=== PATIENT | female | born 1995 | race African-American/Black ===

== ENCOUNTER 2017-01-07 12:36 | Emergency (ER) | payer OTHER, SELFPAY ==
[2017-01-07] MEDS ORDERED: Acetaminophen 500 MG TAB ONE (13:41)
[2017-01-07] MEDS ORDERED: Ibuprofen 200 MG TAB ONE (14:37)
== END 2017-01-07 15:22 | disposition home or self-care (01) ==
LOC: ERS 12:36
DX: J11.1 Influenza due to unidentified influenza virus with other respiratory manifestations (principal); I10 Essential (primary) hypertension
CPT/HCPCS: 87081; 87430; 99283

== ENCOUNTER 2018-04-04 15:41 | Emergency (ER) | payer SELFPAY | END 2018-04-04 17:02 | disposition home or self-care (01) | LOC: ERS 15:41 | DX: J02.9 Acute pharyngitis, unspecified (principal); I10 Essential (primary) hypertension; Z79.899 Other long term (current) drug therapy | CPT/HCPCS: 87081; 87430; 99283 ==

== ENCOUNTER 2019-01-30 05:36 | Emergency (ER) | payer BC, SELFPAY ==
[2019-01-30 06:04] LABS: Hemoglobin 13.4 g/dL (12.0-16.0); Mean Corpuscular HGB CONC 32.3 g/dL (32.0-36.0); Mean Corpuscular Hemoglobin 29.9 pg (27.0-31.0); Mean Corpuscular Volume 92.4 fL (78.0-98.0); Platelet Count 344 thou/uL (130-400); RBC Distribution Width 11.9 % (11.5-14.5); White Blood Cell (WBC) Count 16.8 thou/uL (4.8-10.8)
[2019-01-30 06:27] LABS: Band 2 % (5-11); Lymphocytes 3 % (21-51); MDiff Complete? YES; Monocytes 1 % (0-10); Neutrophil 94 % (42-75); Platelet Morphology Comment Appears Adequate; RBC Morphology Normal
[2019-01-30 06:38] LABS: ALT (SGPT) 20 U/L (8-55); AST (SGOT) 17 U/L (5-34); Albumin 5.2 g/dL (3.5-5.0); Alkaline Phosphatase 101 U/L (40-110); Anion Gap 21 mmol/L (10-20); BUN (Urea Nitrogen) 10 mg/dL (7.0-18.7); Bilirubin, Total 0.9 mg/dL (0.2-1.2); Calc. Creatinine Clearance 0 mL/min (70-130); Carbon Dioxide 19 mmol/L (22-29); Chloride 101 mmol/L (98-107); Estimated GFR-MDRD Greater than 90; Globulin 3.1 g/dL (2.4-3.5); Glucose 137 mg/dL (70-105); Lipase 14 U/L (8-78); Potassium 3.8 mmol/L (3.5-5.1); Protein, Total 8.3 g/dL (6.0-8.3); Sodium 137 mmol/L (136-145)
[2019-01-30 06:54] LABS: BHCG - Serum Negative (NEGATIVE); Pregs Control Background? CLEAR/WHITE (CLR/WHITE); Pregs Control Bar Appear? YES (CONTROL BAR)
[2019-01-30 07:37] LABS: Bacteria/HPF 2+ HPF (None Seen); Bilirubin Negative (Negative); Blood, Urine Negative (Negative); Clarity Clear (Clear); Glucose, Urine (Dipstick) Normal (Negative); Leukocyte Negative Leu/uL (Negative); Nitrite 2+ (Negative); Protein, Urine (Dipstick) 10 mg/dL (Neg-Trace); RBC/HPF 0-3 HPF (0-3); Squamous Epithelial 0-3 HPF (0-3); Urobilinogen Normal mg/dL (Less than 2); WBC/HPF 0-3 HPF (0-3)
--- NOTE | 2019-01-30 07:49 | CT ---
CT ABDOMEN AND PELVIS WITH IV CONTRAST 01/30/2019 CLINICAL INFORMATION: Abdominal pain with nausea and vomiting which started site. Most severe in the lower abdomen. COMPARISON: None. Technique: Multiple contiguous axial CT images are obtained through the abdomen and pelvis with IV contrast. Cor onal reformatted images are provided. FINDINGS: Lower Chest: Lung bases are clear. Vessels: Incidental note is made of a retroaortic left renal vein. The abdominal aorta is normal in c aliber without evidence of an aortic dissection. Abdomen: Portal vein:Patent Gallbladder: Within normal limits for CT imaging. Liver: within normal limits. Spleen: within normal limits. Pancreas: within normal limits. Adrenals: within normal limits. Kidneys: within normal limits. Bowel: There is a metallic density seen in the region of the cecal apex which may be related to inges gil material. Loops of small bowel are normal in caliber. Appendix: The appendix is mildly dilated measuring 8 mm, but no periappendiceal inflammatory changes or cecal apical thickening is seen. This may be within normal limits for the patient. Peritoneum: No ascites or free air; no fluid collection. Mesentery and Retroperitoneum: No enlarged mesenteric or retroperitoneal lymph nodes. Abdominal Wall: within normal limits. Pelvis: Reproductive Organs: A T-shaped intrauterine contraceptive device is noted in place. Pelvis within normal limits. Bladder: Partially distended and normal in appearance. Bones: No suspicious lytic or sclerotic osseous lesions are identified. IMPRESSION: 1. No acute findings are seen in the abdomen or pelvis. 2. The appendix is mildly dilated measuring 8 mm, but there is no periappendiceal inflammatory change s or cecal apical thickening to suggest evidence of appendicitis. This may be within normal limits for the patient. 3. Metallic density seen in the cecal apex which may be related to tiny metallic ingested foreign bod y.
[2019-01-30 07:54] LABS: Base Excess-Venous -4.7 mmol/L (-2.0 to 3.0); Bicarbonate (HCO3v) 18.2 mmol/L (22.0-28.0); Calcium, Ionized 1.06 mmol/L (See Comments:); Chloride 102 mmol/L (98-107); Hemoglobin - Calc 12.5 g/dL (12.0-16.0); Potassium 3.9 mmol/L (3.5-5.1); Sodium 135 mmol/L (138-145); vO2 Saturation-calc 93.2 % (60.0-85.0)
[2019-01-30] MEDS ORDERED: cefTRIAXone\\ROCEPHIN 1 GM VIAL ONE (08:38)
[2019-01-30] MEDS ORDERED: Morphine 4 MG/ML VIAL ONE (08:44)
[2019-01-30] MEDS ORDERED: Promethazine HCl 25 MG/ML VIAL ONE (09:09)
[2019-01-30] MEDS ORDERED: ISOVUE-370 76%-LOCM 1 ML ONE (12:00)
== END 2019-01-30 10:21 | disposition home or self-care (01) ==
LOC: ERS 05:36
DX: N39.0 Urinary tract infection, site not specified (principal); R11.2 Nausea with vomiting, unspecified; I10 Essential (primary) hypertension
CPT/HCPCS: 36415; 74177; 80053; 81003; 81015; 82330; 82803; 83690; 84703; 85025; 87077; 87086; 87186; 96361; 96365; 96367; 96375; J0696; J2270; J2550; Q9966

== ENCOUNTER 2019-01-31 07:40 | Inpatient (IN) | payer BC, SELFPAY ==
[2019-01-31 08:03] LABS: #Eosinphils 0.1 thou/uL (0.0-0.7); #Monocytes 1.4 thou/uL (0.11-0.59); #Neutrophils 6.4 thou/uL (1.40-6.50); %Basophils 0.1 % (0.0-1.0); %Eosinophils 0.6 % (0.0-10.0); %Lymphocytes 27.4 % (21.0-51.0); %Neutrophils 58.9 % (42.0-75.0); Hemoglobin 13.6 g/dL (12.0-16.0); Mean Corpuscular HGB CONC 32.8 g/dL (32.0-36.0); Mean Corpuscular Hemoglobin 30.6 pg (27.0-31.0); Mean Corpuscular Volume 93.3 fL (78.0-98.0); Mean Platelet Volume 6.9 fL (7.4-10.4); Platelet Count 342 thou/uL (130-400); Red Blood Cell (RBC) Count 4.46 mill/uL (4.20-5.40); White Blood Cell (WBC) Count 10.9 thou/uL (4.8-10.8)
[2019-01-31] MEDS ORDERED: Ondansetron PF 4 MG/2 ML Vial ONE (08:23)
[2019-01-31 08:35] LABS: ALT (SGPT) 18 U/L (8-55); AST (SGOT) 20 U/L (5-34); Albumin 4.6 g/dL (3.5-5.0); Alkaline Phosphatase 89 U/L (40-110); Anion Gap 16 mmol/L (10-20); BUN (Urea Nitrogen) 9 mg/dL (7.0-18.7); Bilirubin, Total 0.9 mg/dL (0.2-1.2); Calc. Creatinine Clearance 0 mL/min (70-130); Calcium 9.5 mg/dL (7.8-10.44); Carbon Dioxide 24 mmol/L (22-29); Chloride 101 mmol/L (98-107); Estimated GFR-MDRD 85; Globulin 2.9 g/dL (2.4-3.5); Glucose 105 mg/dL (70-105); Lipase 19 U/L (8-78); Potassium 3.1 mmol/L (3.5-5.1); Protein, Total 7.5 g/dL (6.0-8.3); Sodium 138 mmol/L (136-145)
[2019-01-31] MEDS ORDERED: Morphine 4 MG/ML VIAL ONE (08:46)
--- NOTE | 2019-01-31 09:08 | CT ---
CT HEAD NONCONTRAST In the emergency department, this patient was inadvertently transported to the emergency room CT depa rtment for a head CT scan by the emergency room transportation service. The patient will not be billed for this exam. This interpretation will be performed for documentation purposes, as the images are now a component o f the patient's permanent medical record. CT images of the brain reveal no evidence of acute intracranial abnormality. There are no significant abnormalities demonstrated on the basis of noncontrast head CT.
[2019-01-31] MEDS ORDERED: Metoclopramide HCl 10 MG/2 ML VIAL ONE (09:41)
[2019-01-31] MEDS ORDERED: Potassium Chloride 20 MEQ TAB ONE (10:07)
--- NOTE | 2019-01-31 10:11 | RAD ---
XR Abdomen 2 View/1 View Cxr History: Abdominal pain Comparison: None. Findings: Lungs are clear. No pneumothorax or effusion. Cardiac silhouette and mediastinal contours a re within normal limits. No dilated air-filled loops of large or small bowel. Intrauterine device projects over the pelvis. No abnormal calcifications projecting of the renal shadows. No free air under the hemidiaphragms. Impression: No acute intrathoracic or intra-abdominal abnormality.
[2019-01-31] MEDS ORDERED: Potassium Chloride 30 MEQ in Sodium Chloride 0.9% 250 ML 250 ML IV SCH (11:00)
[2019-01-31 11:32] LABS: Bacteria/HPF None Seen HPF (None Seen); Bilirubin Negative (Negative); Blood, Urine 3+ (Negative); Clarity Clear (Clear); Glucose, Urine (Dipstick) Normal (Negative); Leukocyte Negative Leu/uL (Negative); Nitrite Negative (Negative); Protein, Urine (Dipstick) Negative (Neg-Trace); RBC/HPF 0-3 HPF (0-3); Squamous Epithelial 0-3 HPF (0-3); Urobilinogen Normal mg/dL (Less than 2); WBC/HPF 0-3 HPF (0-3)
[2019-01-31 11:35] LABS: Pregnancy Test - Urine (BHCG) Negative (Negative); Pregu Control Background? CLEAR/WHITE (CLR/WHITE); Pregu Control Bar Appear? YES (CONTROL BAR); Specific Gravity 1.016 (1.002-1.036)
[2019-01-31 11:39] LABS: Lactic Acid 1.7 mmol/L (0.5-2.2)
[2019-01-31 11:44] LABS: Phosphorus 1.2 mg/dL (2.3-4.7)
[2019-01-31] MEDS ORDERED: metroNIDAZOLE 500 MG in Premix Bag 1 BAG IVPB SCH (12:00)
[2019-01-31] MEDS ORDERED: Calcium Carbonate 500 MG ChewTAB PO PRN (12:32)
[2019-01-31] MEDS ORDERED: Ondansetron PF 4 MG/2 ML Vial IVP PRN (12:32)
[2019-01-31 12:58] VITALS: BMI 30.2
[2019-01-31] MEDS: Morphine 2 MG/ML SYRINGE SLOW IVP PRN ×3 (13:51→21:07)
[2019-01-31] MEDS: Piperacillin/Tazobactam 3.375 GM in Sodium Chloride 0.9% 100 ML IVPB SCH ×3 (13:51→23:30)
--- NOTE | 2019-01-31 14:30 | HP ---
PRIMARY CARE PHYSICIAN: [facility]. CHIEF COMPLAINT: Nausea, vomiting, diarrhea along with abdominal discomfort of 3 days duration. HISTORY OF PRESENT ILLNESS: The patient is a 23-year-old female who presented to the emergency room with above complaints. Over the last three days, the patient developed intractable nausea, vomiting, and diarrhea. She was unable to keep any food down. The vomiting was watery and contained food which she had eaten. The diarrhea was watery, initially nonbloody. Since yesterday, she noticed some bloody streaks. She also had fever and chills along with generalized weakness and fatigue. She also had abdominal discomfort mainly in the lower quadrant, cramping, 10/10, aggravated by movement. She also recently traveled to [place] approximately a month ago. She denies any sick contacts. She ate some tacos 3-4 days before the symptom onset. No similar symptoms in the past. The patient was evaluated in the emergency room yesterday. The CT scan of the abdomen showed some swelling of the appendix. She was discharged home with a diagnosis of possible viral gastroenteritis. Post discharge from the ED, her symptoms continued to worsen for which she presented to the emergency room. The patient denies any hematemesis. The vomitus was bilious. PAST MEDICAL HISTORY: History of hypertension. PAST SURGICAL HISTORY: Bilateral knee arthroscopic surgery. ALLERGIES: NO KNOWN DRUG ALLERGIES. CURRENT HOME MEDICATION: Reviewed with the patient and none. SOCIAL HISTORY: The patient currently lives at home. Drinks alcohol socially. She abuses cannabis every other week. Denies any tobacco abuse. FAMILY HISTORY: Positive for diabetes and hypertension. REVIEW OF SYSTEMS: All other review of systems was reviewed and were found negative. PHYSICAL EXAMINATION: VITAL SIGNS: Temperature 98.8, respirations of 18, pulse rate of 73, blood pressure of 168/102, O2 saturation 99% on room air. GENERAL: 23-year-old female, in mild distress due to abdominal discomfort. HEENT: Head, atraumatic and normocephalic. Sclerae anicteric. Dry mucous membranes. No oral lesion. NECK: Supple. No JVD appreciated. No carotid bruit. LUNGS: Clear to auscultation bilaterally. No wheezing, rales, rhonchi. HEART: S1, S2 present. Regular rate and rhythm. No rubs or gallops. ABDOMEN: Soft. There is diffuse tenderness around the periumbilical region. No rebound or guarding. No costovertebral angle tenderness. EXTREMITIES: No edema, calf tenderness. NEUROLOGIC: Grossly nonfocal. Moves all 4 extremities. PSYCHIATRY: Alert, awake, oriented x3. SKIN: Warm and dry. LYMPH NODES: No palpable lymph nodes in the neck. PERIPHERAL VASCULAR: Radial pulses palpable bilaterally. MUSCULOSKELETAL: No joint swelling or tenderness. LABORATORY FINDINGS: WBC 16.8 yesterday and 10.9 today. VBGs yesterday showed pH of 7.43 with bicarbonate 18.2. Sodium yesterday was 135, today is 138 with potassium 3.1. Lactic acid 2.8, BUN 9, and creatinine 0.98, magnesium 1.9, phosphorus 1.2. Urinalysis showed 2+ bacteria. Urine test was negative. Urine culture from yesterday showed gram-negative amie. CT scan of the abdomen and pelvis done yesterday as discussed above. CT scan of the brain noncontrast was negative for acute findings. Acute abdominal series by my review was negative for free air. Telemetry monitoring by my review showed sinus rhythm. IMPRESSION: 1. Nausea, vomiting, diarrhea with abdominal discomfort. Her symptoms are consistent with severe sepsis secondary to gastroenteritis. 2. Dehydration with hypokalemia, hypophosphatemia, and lactic acidosis. 3. Suspected urinary tract infection. Urine cultures from yesterday showed gram-negative rods. 4. Recent foreign body ingestion. CT scan showed a foreign body in the cecum. 5. Cannabis abuse. 6. Hyponatremia. PLAN: The patient will be monitored on the medical floor. We will replace electrolytes. Start IV fluids. Start her on IV Zosyn and Flagyl. We will get stool workup including ova and parasite. Recheck labs in a.m. The patient denies any recent antibiotic use. Gastroenterology and General Surgery consultation. Pain control. Plan of care was discussed with the patient in detail. She stated understanding. Job ID: [id number]
[2019-01-31] MEDS: metroNIDAZOLE 500 MG in Premix Bag 1 BAG IVPB SCH ×2 (14:53→20:06)
[2019-01-31] MEDS: POTASSIUM PHOSPHATE IV SCH ×2 (16:53→21:11)
[2019-01-31] MEDS: DEXTROSE 5% IV SCH ×2 (16:53→21:11)
[2019-01-31] MEDS: WATER IV SCH ×2 (16:53→21:11)
[2019-01-31] MEDS: Famotidine/PF 20 mg/2ml Vial SLOW IVP SCH (20:07)
[2019-02-01] MEDS: Morphine 2 MG/ML SYRINGE SLOW IVP PRN ×3 (00:47→08:36)
[2019-02-01] MEDS: metroNIDAZOLE 500 MG in Premix Bag 1 BAG IVPB SCH ×3 (05:06→20:08)
[2019-02-01] MEDS: WATER IV SCH ×3 (05:12→15:27)
[2019-02-01] MEDS: POTASSIUM PHOSPHATE IV SCH ×3 (05:12→15:27)
[2019-02-01] MEDS: DEXTROSE 5% IV SCH ×3 (05:12→15:27)
[2019-02-01] MEDS: Piperacillin/Tazobactam 3.375 GM in Sodium Chloride 0.9% 100 ML IVPB SCH ×4 (05:13→23:36)
[2019-02-01 05:26] LABS: #Eosinphils 0.1 thou/uL (0.0-0.7); #Lymphocytes 2.8 thou/uL (1.20-3.40); #Monocytes 1.1 thou/uL (0.11-0.59); #Neutrophils 4.9 thou/uL (1.40-6.50); %Basophils 0.3 % (0.0-1.0); %Eosinophils 1.3 % (0.0-10.0); %Lymphocytes 31.1 % (21.0-51.0); %Monocytes 12.5 % (0.0-10.0); %Neutrophils 54.8 % (42.0-75.0); Hemoglobin 11.5 g/dL (12.0-16.0); Mean Corpuscular HGB CONC 32.5 g/dL (32.0-36.0); Mean Corpuscular Hemoglobin 30.3 pg (27.0-31.0); Mean Corpuscular Volume 93.3 fL (78.0-98.0); Mean Platelet Volume 6.9 fL (7.4-10.4); Platelet Count 287 thou/uL (130-400); RBC Distribution Width 11.9 % (11.5-14.5)
[2019-02-01 05:45] LABS: Phosphorus 4.2 mg/dL (2.3-4.7)
[2019-02-01 05:52] LABS: ALT (SGPT) 14 U/L (8-55); AST (SGOT) 15 U/L (5-34); Albumin 3.9 g/dL (3.5-5.0); Alkaline Phosphatase 72 U/L (40-110); Anion Gap 12 mmol/L (10-20); BUN (Urea Nitrogen) 8 mg/dL (7.0-18.7); Bilirubin, Total 0.9 mg/dL (0.2-1.2); Calc. Creatinine Clearance 134 mL/min (70-130); Calcium 8.6 mg/dL (7.8-10.44); Carbon Dioxide 26 mmol/L (22-29); Chloride 105 mmol/L (98-107); Estimated GFR-MDRD 84; Globulin 2.3 g/dL (2.4-3.5); Glucose 93 mg/dL (70-105); Potassium 3.3 mmol/L (3.5-5.1); Protein, Total 6.2 g/dL (6.0-8.3); Sodium 140 mmol/L (136-145)
[2019-02-01] MEDS: Saccharomyces boulardii 250 MG CAP PO SCH (08:30)
[2019-02-01] MEDS: Famotidine/PF 20 mg/2ml Vial SLOW IVP SCH (08:30)
[2019-02-01] MEDS: Acetaminophen 325 MG TAB PO PRN ×2 (08:36→12:47)
--- NOTE | 2019-02-01 09:42 | CON ---
DATE OF CONSULTATION: 01/31/2019 REASON FOR CONSULTATION: Abdominal pain, nausea, vomiting, and diarrhea. HISTORY OF PRESENT ILLNESS: Ms. Margaux Lagunas is a 23-year-old female with history of abdominal pain, nausea, and vomiting. Her symptoms started around 6 p.m. on Tuesday. The nausea and vomiting are very severe and she also had abdominal pain, which is kind of diffuse and cramping in nature. She had no fever or chills. She came to the ER on Tuesday night and spent Tuesday night till Tuesday afternoon. Apparently, she was receiving some IV fluids and pain medication. She had abdominal CAT scan. The abdominal CAT scan shows no acute findings. She was found to have recently a metallic object in the cecal area. The patient was sent home and she came back subsequently with the same symptoms. At the time of the consultation, she appears very comfortable, in no acute distress, but the same day, she says she has severe nausea and vomiting. She has had no more diarrhea since last night. She had no similar symptoms here. Relevant history is she was also in [place] a month ago for 7 days for vacation. She did not get sick, when she was visiting. There is no history of antibiotic intake. The patient tells me she had a ring over the tongue, which she accidently swallowed it about 2 weeks ago, that is what is seen shadowing in the cecal area. The patient has no history of hematemesis. No history of melena, rectal bleeding. She has no relevant history. ALLERGIES: NONE. SOCIAL HISTORY: The patient says she smokes few cigarettes. Does not drink any alcohol. Uses cannabis off and on. MEDICAL ILLNESSES: History of hypertension and was on medicine before, but not taking any medications anymore. No relevant medical illness. PAST SURGICAL HISTORY: She has had a knee arthroscopy. FAMILY HISTORY: Hypertension and diabetes in grandparents. Her parents are very healthy. No family history of any cancer. No CVA. No heart disease. MEDICATIONS: At home, none. MENSTRUAL HISTORY: Regular cycles. She is on cycle at the present time. REVIEW OF SYSTEMS: Ten-point system reviewed. CONSTITUTIONAL: No history of fever. No weight loss. Has good energy level until Tuesday. HEAD: No chronic headache. No dizziness. EYES: No diplopia. No visual impairment. EARS: No bleeding. No discharge. NOSE: No nose bleed. THROAT: No sore throat or dysphagia. LUNGS: No chronic coughing, hemoptysis, or dyspnea. CARDIOVASCULAR SYSTEM: No chest pain. No palpitation, dyspnea, orthopnea, or PND. GASTROINTESTINAL: As in History of Present Illness. GENITOURINARY: No dysuria or hematuria. MUSCULOSKELETAL: Unremarkable. NEUROENDOCRINE: Unremarkable. PHYSICAL EXAMINATION: GENERAL: She is mildly obese, appears comfortable, in no acute distress. She says she had a lot of pain, at the same time she wants to eat. VITAL SIGNS: She is afebrile, her pulse is 76, blood pressure 130/80. HEENT: Conjunctivae are clear. NECK: Supple. CARDIOVASCULAR SYSTEM: First and second heart sounds heard. LUNGS: Clear to auscultation. ABDOMEN: Soft and nondistended. Abdomen exam is actually very benign, but she is kind of tender all over wherever her abdomen is palpated. There is no rebound or guarding. Active bowel sounds. EXTREMITIES: Reveal no edema. LABORATORY DATA: WBC 10,900, hemoglobin is 13.6, hematocrit 41.6, MCV 93.3, platelet count is 342,000, polymorphs 58, lymphocytes 27, monocytes 13. Chemistry panel shows slightly low potassium at 3.1. Other lytes are normal. BUN is 9, creatinine 0.98, glucose is 105. Lactic acid 2.8. Calcium 9.5. Liver function tests are normal. Lipase 19. CLINICAL IMPRESSION: A 23-year-old female with abdominal pain, nausea, and vomiting. Her symptoms are possibly acute gastroenteritis. The abdomen is very benign and does not show any acute findings. An abdominal CAT scan done 2 nights ago, does show a metallic object in the cecum, which is supposed to be the ring around the thing over the tongue, which she swallowed accidently. RECOMMENDATIONS: 1. IV fluids. 2. Pain medication. 3. Control nausea with Zofran and Phenergan. 4. If she has recurrent diarrhea, obtain stool for culture and ova and parasites. 5. May start the patient on clear liquid diet and advance diet as tolerated. Job ID: [id number] [facility]
[2019-02-01] MEDS ORDERED: diphenhydrAMINE 25 MG CAP PO PRN (13:28)
[2019-02-01] MEDS: Ondansetron ODT 4 MG TAB PO PRN (13:50)
[2019-02-01] MEDS: traMADol HCl 50 MG TAB PO PRN ×2 (15:34→20:55)
[2019-02-01] MEDS: Famotidine 20 MG TAB PO SCH (20:06)
--- NOTE | 2019-02-01 21:46 | PRG ---
DATE OF SERVICE: 02/01/2019 SUBJECTIVE: This is a 23-year-old female hospitalized with abdominal pain, nausea, vomiting, and diarrhea. The patient actually is feeling better today. She has no more nausea, no more vomiting. She is tolerating clear liquid diet. Her diarrhea is also resolved. She has very minimal abdominal discomfort. She actually feels hungry and she wants to eat something. Apparently, a friend brought some food from [employer] and she wants to know , whether she can eat it.. She has no other complaints. OBJECTIVE: GENERAL: She appears very comfortable, in no distress. She is afebrile. VITAL SIGNS: Temperature 98 degrees Fahrenheit, pulse is 60, blood pressure is 111/68. HEENT: Conjunctivae are clear. CARDIOVASCULAR: First and second heart sounds are normal. LUNGS: Clear to auscultation. ABDOMEN: Soft. No organomegaly. No tenderness. No masses. LABORATORY DATA: From this morning, hemoglobin 11.5, hematocrit 35.4, MCV 93.3, platelet count is 287,000, polymorphs 54, lymphocytes 31, WBC 9000. Her lytes are normal except for potassium which is slightly over 3.3. CLINICAL IMPRESSION: Acute gastroenteritis, resolved. RECOMMENDATION: 1. Advance diet to regular diet. 2. If she tolerates her diet well, she can probably go home tomorrow. Job ID: [id number] MTDD
[2019-02-02] MEDS: traMADol HCl 50 MG TAB PO PRN ×4 (03:27→15:46)
[2019-02-02] MEDS: metroNIDAZOLE 500 MG in Premix Bag 1 BAG IVPB SCH ×2 (04:59→12:03)
[2019-02-02] MEDS: Piperacillin/Tazobactam 3.375 GM in Sodium Chloride 0.9% 100 ML IVPB SCH ×2 (05:03→12:03)
[2019-02-02] MEDS: Ondansetron ODT 4 MG TAB PO PRN (05:09)
[2019-02-02 07:07] LABS: Anion Gap 9 mmol/L (10-20); BUN (Urea Nitrogen) 7 mg/dL (7.0-18.7); Calc. Creatinine Clearance 127 mL/min (70-130); Calcium 8.9 mg/dL (7.8-10.44); Carbon Dioxide 30 mmol/L (22-29); Chloride 103 mmol/L (98-107); Estimated GFR-MDRD 79; Glucose 85 mg/dL (70-105); Sodium 139 mmol/L (136-145)
[2019-02-02] MEDS: Famotidine 20 MG TAB PO SCH (08:10)
[2019-02-02] MEDS: Saccharomyces boulardii 250 MG CAP PO SCH (08:10)
--- NOTE | 2019-02-02 08:42 | PDOC.HOSPP ---
- Subjective Encounter Date: 02/01/19 Encounter Time: 11:00 Subjective: Patient seen and examined for Sepsis/Gastroenteritis. No BM. Abd pain improving. No new complaints. No overnight events - Objective Vital Signs & Weight: Vital Signs (12 hours) Temp Pulse Resp BP Pulse Ox 02/02/19 07:22 97.9 F 45 L 16 129/75 100 02/02/19 03:47 98.0 F 61 18 135/84 99 Weight Weight 211 lb I&O: 02/01/19 02/02/19 02/03/19 06:59 06:59 06:59 Intake Total 2295 3150 Balance 2295 3150 Result Diagrams: 02/01/19 04:56 02/02/19 06:18 Radiology Reviewed by me: Yes (CT abd - reviewed) Hospitalist ROS - Review of Systems Respiratory: denies: cough, dry, shortness of breath, hemoptysis, SOB with excertion, pleuritic pain, sputum, wheezing, other Cardiovascular: denies: chest pain, palpitations, orthopnea, paroxysmal noc. dyspnea, edema, light headedness, other - Medication Medications: Active Medications Generic Name Dose Route Start Last Admin Trade Name Freq PRN Reason Stop Dose Admin Acetaminophen 650 mg 01/31/19 12:32 02/01/19 12:47 Tylenol PO 650 mg Q4H PRN Administration Headache/Fever/Mild Pain (1-3) Diphenhydramine HCl 25 mg 02/01/19 13:28 02/01/19 13:48 Benadryl PO 25 mg Q6H PRN Administration Itching & Insomnia Famotidine 20 mg 02/01/19 21:00 02/02/19 08:10 Pepcid PO 20 mg BID MADHAVI Administration Piperacillin Sod/Tazobactam 100 mls @ 200 mls/hr 01/31/19 12:00 02/02/19 05: 03 Sod 3.375 gm/ Sodium Chloride IVPB 100 mls Q6HR MADHAVI Administration Metronidazole 500 mg/ Device 100 mls @ 100 mls/hr 01/31/19 13:00 02/02/19 04: 59 IVPB 100 mls 0500,1300,2100 MADHAVI Administration Ondansetron HCl 4 mg 01/31/19 12:32 02/02/19 05:09 Zofran Odt PO 4 mg Q6H PRN Administration Nausea/Vomiting Saccharomyces Boulardii 250 mg 02/01/19 09:00 02/02/19 08:10 Florastor PO 250 mg DAILY MADHAVI Administration Tramadol HCl 50 mg 02/01/19 15:20 02/02/19 08:10 Ultram PO 50 mg Q4H PRN Administration Moderate Pain (4-6) - Exam General Appearance: NAD Heart: RRR, no rubs Respiratory: CTAB, no rales Gastrointestinal: soft, non-tender, non-distended, normal bowel sounds Extremities: no edema Hosp A/P - Plan DVT proph w/SCDs IMPRESSION: 1. Severe sepsis secondary to gastroenteritis. 2. Dehydration with hyponatremia, hypokalemia, hypophosphatemia, and lactic acidosis. 3. ?UTI. 4. Recent foreign body ingestion. CT scan showed a foreign body in the cecum. 5. Cannabis abuse. 6. Obesity BMI 30.3 PLAN: Cont IVF - dc later today if tolerated PO Cont Clear liqd diet GI input appreciated AM labs Cont Atbx Case d/w Dr Mayberry - Outpt f/u K[facility] next week
[2019-02-02] MEDS ORDERED: Potassium Chloride 20 MEQ TAB PO SCH (08:45)
[2019-02-02] MEDS ORDERED: Potassium Chloride 20 MEQ/100 ML PREMIX BAG IVPB SCH (08:45)
[2019-02-02] MEDS: Potassium Chloride 20 MEQ TAB PO SCH ×2 (12:01→15:44)
[2019-02-02] MEDS ORDERED: NS 0.9% w/ 20 MEQ KCL 1,000 ML IV SCH ×2 (13:30)
[2019-02-02] MEDS ORDERED: metroNIDAZOLE 500 MG TAB PO SCH (15:00)
[2019-02-02 17:12] VITALS: BP 124/82; TEMP 98.1
[2019-02-02] MEDS ORDERED: Cefdinir 300 MG CAP PO SCH (21:00)
--- NOTE | 2019-02-02 22:01 | DIS ---
DATE OF ADMISSION: 01/31/2019 DATE OF DISCHARGE: 02/02/2019 DISCHARGE DISPOSITION: Home. FOLLOWUP: 1. Follow up with primary care physician at [facility] [[email or web address]] in 1 week. 2. Follow up with Dr. Mayberry in 1 to 2 weeks for a repeat abdominal x-ray. DISCHARGE MEDICATIONS: 1. Flagyl 500 mg 3 times daily. 2. Tramadol as needed. SIGNIFICANT LABS: 1. Phosphorus 1.2, replaced. 2. Potassium 3.0, replaced. 3. WBC on admission 10.9, at discharge 9.0. 4. Repeat basic metabolic profile after 1 week is recommended. Primary care physician advised to follow. The patient was seen and examined on the day of discharge. Denies any new complaints. Tolerating full liquid diet. BRIEF HOSPITAL COURSE: The patient is a 23-year-old female, who presented to the emergency room with nausea, vomiting, diarrhea along with abdominal discomfort. Please refer to the history and physical dated January 31, 2019 for further details. The patient was admitted to the hospital with a diagnosis of acute gastroenteritis. The patient was evaluated by Gastroenterology, Dr. Brito. She was started on IV fluids along with empiric antibiotics. Her diet was gradually advanced. Abdominal discomfort has significantly improved. She has been cleared by Gastroenterology for discharge. The patient also had a recent foreign body ingestion (tongue ring). CT scan the day before admission showed the foreign body in the cecum. She was advised to follow up with the abdominal x-ray after 1 week. FINAL DIAGNOSES: 1. Acute gastroenteritis, improved. 2. Dehydration. 3. Lactic acidosis secondary to dehydration. 4. Hypokalemia. 5. Hypophosphatemia. 6. Recent foreign body ingestion. 7. Cannabis abuse. 8. Hyponatremia. PLAN: Plan of care was discussed with the patient in detail. She stated understanding. Job ID: [id number]
[2019-02-03] MEDS ORDERED: Saccharomyces boulardii 250 MG CAP PO SCH (09:00)
--- NOTE | 2019-02-05 09:28 | PQF ---
SHERRELL PEDROZA MALIK MD [id number] CLINICAL DOCUMENTATION CLARIFICATION FORM: POST DISCHARGE Addendum to original discharge summary date: ____ Late entry note date: __ DATE:02/05/2019 ATTN: MILY BARAHONA MD Please exercise your independent, professional judgment in responding to the clarification form. Clinical indicators are provided on the bottom of this form for your review Please check appropriate box(s): [ ] Infectious acute gastroenteritis [ ] Non-infectious acute gastroenteritis [ ] Other diagnosis [ ] Unable to determine For continuity of documentation, please document condition throughout progress notes and discharge summary. Thank You. CLINICAL INDICATORS - SIGNS / SYMPTOMS / LABS Nausea,Vomiting,Diarrhea with abdominal discomfort,Her symptoms are consistent with severe sepsis secondary to gastroenteritis-Documented in H&P on 01/31 by Mily Barahona Dehydration-Documented in H&P on 01/31 by Mily Barahona Lactic acidosis-Documented in H&P on 01/31 by Mily Barahona WBC-10.9-Documented in Laboratory RISK FACTORS Recent foreign body ingestion-Documented in H&P on 01/31 by Mily Barahona Dehydration-Documented in H&P on 01/31 by Mily Barahona Cannabis [id number] in H&P on 01/31 by Mily Barahona TREATMENT: She was started on IV fluids along with empiric antibiotics-Documented in DS on 02/02 by Mily Barahona (This form is maintained as a part of the permanent medical record) [employer] [id number]. All Rights Reserved [email or web address] [not provided] [email or web address]
== END 2019-02-02 17:33 | disposition home or self-care (01) | DRG 391 ==
LOC: ERS 07:40 → T4-A 11:04
PROVIDERS: ADMIT Internal Medicine; ATTEND Internal Medicine
DX: K52.9 Noninfective gastroenteritis and colitis, unspecified (principal); A41.9 Sepsis, unspecified organism; R65.20 Severe sepsis without septic shock; E87.2 Acidosis; E87.1 Hypo-osmolality and hyponatremia; E86.0 Dehydration; E87.6 Hypokalemia; E83.39 Other disorders of phosphorus metabolism; F14.10 Cocaine abuse, uncomplicated; I10 Essential (primary) hypertension; F17.210 Nicotine dependence, cigarettes, uncomplicated; Z82.49 Family history of ischemic heart disease and other diseases of the circulatory system; Z83.3 Family history of diabetes mellitus; E66.9 Obesity, unspecified; Z68.30 Body mass index [BMI] 30.0-30.9, adult
CPT/HCPCS: 36415; 70450; 74022; 80048; 80053; 81003; 81015; 81025; 83605; 83690; 83735; 84100; 85025; 96361; 96365; 96367; 96375; J2270; J2405; J2543; J2765; J3480; J3490; J7050; J7070; Q0162; Q0163; S0028

== ENCOUNTER 2020-08-31 21:00 | Emergency (ER) | payer BC, OTHER ==
[2020-08-31 22:18] LABS: #Lymphocytes 1.4 thou/uL (1.20-3.40); #Monocytes 0.5 thou/uL (0.11-0.59); #Neutrophils 9.2 thou/uL (1.40-6.50); %Basophils 0.2 % (0.0-1.0); %Eosinophils 0.2 % (0.0-10.0); %Lymphocytes 12.2 % (21.0-51.0); %Monocytes 4.5 % (0.0-10.0); %Neutrophils 82.9 % (42.0-75.0); Hemoglobin 14.1 g/dL (12.0-16.0); Mean Corpuscular HGB CONC 34.1 g/dL (32.0-36.0); Mean Corpuscular Hemoglobin 32.6 pg (27.0-31.0); Mean Corpuscular Volume 95.5 fL (78.0-98.0); Mean Platelet Volume 7.2 fL (7.4-10.4); Platelet Count 344 thou/uL (130-400); RBC Distribution Width 11.3 % (11.5-14.5); Red Blood Cell (RBC) Count 4.34 mill/uL (4.20-5.40); White Blood Cell (WBC) Count 11.1 thou/uL (4.8-10.8)
[2020-08-31 22:41] LABS: ALT (SGPT) 28 U/L (8-55); AST (SGOT) 20 U/L (5-34); Alkaline Phosphatase 92 U/L (40-110); Anion Gap 22 mmol/L (10-20); BUN (Urea Nitrogen) 9 mg/dL (7.0-18.7); Bilirubin, Total 0.8 mg/dL (0.2-1.2); Calc. Creatinine Clearance 0 mL/min (70-130); Calcium 10.3 mg/dL (7.8-10.44); Carbon Dioxide 15 mmol/L (22-29); Chloride 102 mmol/L (98-107); Globulin 3.2 g/dL (2.4-3.5); Glucose 127 mg/dL (70-105); Lipase 13 U/L (8-78); Potassium 3.8 mmol/L (3.5-5.1); Protein, Total 8.2 g/dL (6.0-8.3); Sodium 135 mmol/L (136-145)
[2020-09-01] MEDS ORDERED: Ondansetron PF 4 MG/2 ML Vial ONE (00:01)
[2020-09-01] MEDS ORDERED: Ketorolac Tromethamine 30 MG/ML VIAL ONE ×2 (00:01→02:48)
[2020-09-01 00:14] LABS: BHCG - Serum Negative (NEGATIVE); Pregs Control Background? CLEAR/WHITE (CLR/WHITE); Pregs Control Bar Appear? YES (CONTROL BAR)
[2020-09-01 00:41] LABS: Bilirubin Negative (Negative); Blood, Urine Small (Negative); Glucose, Urine (Dipstick) Negative (Negative); Ketone, Urine 40 mg/dL (Negative); Leukocyte Negative (Negative); Nitrite Negative (Negative); Protein, Urine (Dipstick) Trace mg/dL (Neg-Trace); Urobilinogen 0.2 mg/dL (Less than 2)
[2020-09-01 00:43] LABS: Clarity Clear (Clear); Pregnancy Test - Urine (BHCG) Negative (Negative); Pregu Control Background? CLEAR/WHITE (CLR/WHITE); Pregu Control Bar Appear? YES (CONTROL BAR); Specific Gravity 1.031 (1.002-1.036); Specific Gravity, Urine 1.031 (1.002-1.036)
[2020-09-01 00:45] LABS: Bacteria/HPF None Seen HPF (None Seen); Squamous Epithelial 0-3 HPF (0-3)
[2020-09-01] MEDS ORDERED: Iopamidol-370 76% 500 ML 1 ML ONE (08:50)
== END 2020-09-01 03:05 | disposition home or self-care (01) ==
LOC: ERS 21:00
DX: R10.84 Generalized abdominal pain (principal); R11.2 Nausea with vomiting, unspecified
CPT/HCPCS: 36415; 74177; 80053; 81003; 81015; 81025; 83690; 84703; 85025; 96374; 96375; 96376; J1885; J2405; Q9967